=== PATIENT | female | born 1945 | race Caucasian/White ===

== ENCOUNTER → 2019-07-04 | Outpatient (CLI) | payer MEDICARE, OTHER ==
--- NOTE | 2019-07-04 10:04 | KCIC ---
Examination: MRI of the left hip without contrast HISTORY: History of left hip pain COMPARISON: None available TECHNIQUE: Multiplanar, multisequence MR imaging of the left hip are performed without contrast. Findings: The left femoral head is within the acetabula. There is increased T2 signal identified at the attachment of the hamstring tendons to the ischial tuberosity likely partial tear. There is mild increased T2 signal identified at the attachment of the gluteal tendons to the greater trochanter could be subtle partial tears of the gluteal tendons at its attachment or mild trochanteric bursitis. Moderate joint space loss identified in the left hip joint. There is no acute fracture or dislocation identified. A 1.9 cm hypointense signal identified in the uterus probably a fibroid. The visualized sciatic nerve grossly appears unremarkable. IMPRESSION: 1. Partial tear of the left hamstring tendon at its attachment to the ischial tuberosity. 2. Mild increased T2 signal at the of the gluteal tendons to the greater trochanter could be subtle partial tear or mild trochanteric bursitis. 3. Moderate degenerative changes left hip joint. Electronically signed by: Jarett Mercado MD (07/04/2019 10:01 AM) [id number]
== END | disposition home or self-care (01) ==
LOC: KCIC MRI 07:57
PROVIDERS: ATTEND Family Medicine
DX: S76.012A Strain of muscle, fascia and tendon of left hip, initial encounter (principal); M16.12 Unilateral primary osteoarthritis, left hip; X58.XXXA Exposure to other specified factors, initial encounter; Y93.89 Activity, other specified; Y92.89 Other specified places as the place of occurrence of the external cause; Y99.8 Other external cause status
CPT/HCPCS: 73721